=== PATIENT | male | born 1995 | race Caucasian/White ===

== ENCOUNTER 2018-04-05 16:43 | Emergency (ER) | payer MEDICAID ==
[2018-04-05] MEDS: IBUPROFEN 800 MG TAB PO (17:19)
== END 2018-04-05 18:49 | disposition home or self-care (01) ==
LOC: FTE 16:43
DX: S99.911A Unspecified injury of right ankle, initial encounter (principal); W18.39XA Other fall on same level, initial encounter; Y92.89 Other specified places as the place of occurrence of the external cause
CPT/HCPCS: 73610; 73610-RT; 99283-25